=== PATIENT | male | born 2000 | race Two or more races ===

== ENCOUNTER 2025-04-03 20:27 | Emergency (ER) | payer OTHER, SELFPAY ==
[2025-04-03 20:34] VITALS: BP 141/62
[2025-04-03 21:56] VITALS: BP 133/68
[2025-04-03 22:00] VITALS: BP 131/70
--- NOTE | 2025-04-03 22:17 | ED.GENMED ---
History of Present Illness
General
Chief Complaint: Musculo-Skeletal Complaint
Time Seen by Provider: 04/03/25 22:02
History of Present Illness
History of Present Illness:
Patient is a 24-year-old man presenting to the emergency department with left-sided rib pain after a fall. Patient was playing softball when he ran into the fence. He hit his left ribs against the fence. He did not hit his head or lose
consciousness. No numbness tingling. He was able to finish playing the game. He does note that the pain worsened throughout the day. He did not take any medications prior to arrival. No chest pain. No difficulty breathing. No numbness
tingling. No weakness. No trauma elsewhere.
Phy Exam
Physical Exam
Physical Exam:
GENERAL: no acute distress
HEENT: atraumatic, extraocular muscles intact
NECK: no midline tenderness, normal range of motion, NEXUS criteria negative, no other obvious trauma
BACK: no midline tenderness, no other obvious trauma
CHEST: Diffuse tenderness to left lateral ribs with no point tenderness, no flail segment, no subcutaneous emphysema, no other obvious trauma
LUNGS: clear to auscultation bilaterally
CARDIOVASCULAR: regular rate and rhythm
ABDOMEN: soft, non-tender, no masses, no other obvious trauma
EXTREMITIES: moving all extremities, distal pulses intact, no other obvious trauma
NEUROLOGIC: awake, alert x 3, no focal deficits
Course
Orders/Labs/Results
Orders:
Orders
04/03/25 20:36
Ribs, Left 3 View W/PA Chest CR [CR Ribs-left 3 Vw W/pa Chest] Urgent
Comment:
Reason For Exam: injury, pain
04/03/25 22:13
Ketorolac [Toradol] 15 mg IM NOW STA
Incentive Spirometry [Rx Incentive Spirometry] [RESP] Urgent
Frequency: q1h while awake
04/04/25 08:00
Lidocaine [Lidocaine 4% Patch] 1 patch TOPICAL DAILY
Apply Lidocaine patch(s) to:: left ribs
Vital Signs
Initial and Last Documented VS:
Initial Vital Signs
Temp Pulse Resp BP Pulse Ox
98.6 F 73 16 141/62 99
04/03/25 20:34 04/03/25 20:34 04/03/25 20:34 04/03/25 20:34 04/03/25 20:34
Last Documented Vital Signs
Temp Pulse Resp BP Pulse Ox
98.6 F 85 20 131/70 98
04/03/25 20:34 04/03/25 22:09 04/03/25 22:09 04/03/25 22:00 04/03/25 22:00
MDM/Problems Addressed
Differential Diagnosis Includes:
Patient is a 24-year-old man presenting to the emergency department with left-sided rib pain after hitting it against a fence while playing softball. On arrival vitals unremarkable. Exam does show diffuse tenderness to the left lateral ribs but no
other traumatic findings. Abdomen is soft nontender. Likely rib contusion/musculoskeletal pain. Less likely to be a fracture or intra-abdominal pathology. Less likely be pneumothorax. Chest x-ray obtained prior to my evaluation per my
interpretation with no pneumothorax and no obvious rib fracture. Will treat with Toradol and lidocaine patch. Patient did black puller 2000 on the incentive spirometer. Will discharge this time.
*Pulse Oximetry
SaO2: 98
Oxygen Mode of Delivery: Room air
Patient hypoxic: no
*Critical Care Note
Total Time (30-74mins, 75-104mins- exclusive of procedures): Not Applicable
ED Attending Note
-
Portions of this chart may have been created with voice recognition software.� Occasional wrong word or��sound alike� substitutions may have occurred due to the inherent limitations of voice recognition software.
Discharge Plan
Departure
Discharge Problem:
Rib pain on left side
Activity Restrictions/Additional Instructions:
You were seen in the Emergency Department today for chest/rib pain. Please take ibuprofen as discussed. Please use the lidocaine patch as well. Please make sure you use incentive spirometer as discussed as well.
We would like for you to follow up with your primary care physician for further evaluation. If you experience fever, worsening of your symptoms, or develop any other new or concerning symptoms, please return to the Emergency Department immediately.
Please see the attached sheet for additional information.
Interventions
Interventions:
ED-Musculoskeletal Assessment Last Done: 04/03/25 22:10
Discharge Date and Time
Print Language: BENINESE
[2025-04-03] MEDS: LIDOCAINE 4% PATCH 1 PATCH TOPICAL (22:29)
[2025-04-03] MEDS: TORADOL 15 MG IM (22:29)
== END 2025-04-04 00:34 | disposition home or self-care (01) ==
LOC: EMR 20:27
PROVIDERS: EMERGENCY PHYSICIAN Student in an Organized Health Care Education/Training Program
DX: S29.9XXA Unspecified injury of thorax, initial encounter (principal); R07.89 Other chest pain; W18.09XA Striking against other object with subsequent fall, initial encounter; Y92.320 Baseball field as the place of occurrence of the external cause; Y93.64 Activity, baseball
CPT/HCPCS: 99284; 96372; 71101